=== PATIENT | male | born 1985 | race Asian ===

== ENCOUNTER 2020-06-07 20:50 | Emergency (ER) | payer SELFPAY ==
[~2020-06-07] VITALS: Ht 160 cm; Wt 64.9 kg
[2020-06-07 21:18] VITALS: BP_SYST 150
--- NOTE | 2020-06-07 21:18 | NUR ---
Patient triaged and placed in waiting room. VSS and patient appears in no acute distress at this time. Accompanied by , awaiting available bed, and MD notified of need for MSE.
--- NOTE | 2020-06-07 21:54 | NUR ---
Patient to ER bed 02 to gown for evaluation. Side rails up. Report given to LAVERN WHITING
--- NOTE | 2020-06-07 22:00 | NUR ---
Pt walked into the ED c/c s/p unwitnessed mechanical fall in the bathroom today. He states he was dizzy prior to fall. Pt with a laceration to right side lower lip, no active bleeding, +LOC for approx 1-2 minutes. Denies any PMH, -ETOH use, no drug use. Pt denies OLIVEIRA, N/V, neck pain. No fever, chills, CP, SOB.
--- NOTE | 2020-06-07 22:51 | NUR ---
SIOBHAN Lam at bedside examining patient.
[2020-06-07] MEDS ORDERED: DIPH-TET-PERTUS Vaccine 0.5 ML VIAL (ADACEL) I.M. ONE (23:00)
[2020-06-07] MEDS ORDERED: LIDOCAINE 2%, 20 ML MDV ONE (23:00)
[2020-06-07] MEDS ORDERED: LIDOCAINE 2%, 20 ML MDV INJ ONE (23:00)
[2020-06-07] MEDS ORDERED: BACITRACIN 1 GM OINT TP ONE (23:00)
--- NOTE | 2020-06-07 23:29 | NUR ---
Patient has a 1 cm laceration to R lip. Dr. Jim applied sutures using sterile technique. Edges well approximated. Site cleansed with normal saline. Dressing of bacitracin applied to site. No bleeding noted. Pt tolerated well.
--- NOTE | 2020-06-07 23:46 | NUR ---
Pt taken to CT scan, via wheel chair.
--- NOTE | 2020-06-08 00:10 | NUR ---
Lab at bedside.
[2020-06-08] MEDS ORDERED: AMOXICILLIN/CLAVULANATE POTASSIUM 500 MG TABLET PO ONE (00:15)
[2020-06-08] MEDS ORDERED: AMOX-423 PO (00:20)
[2020-06-08] MEDS ORDERED: IBUP-1969 PO (00:20)
[2020-06-08] MEDS ORDERED: AMOXICILLIN/CLAVULANATE POTASSIUM 500 MG TABLET ONE (00:22)
[2020-06-08] MEDS ORDERED: BACITRACIN 1 GM OINT TP ONE (00:22)
[2020-06-08 00:23] LABS: BASOPHILS # (AUTO) 0.1 K/uL (0.0-0.2); BASOPHILS % (AUTO) 0.4 % (0.0-2.0); EOSINOPHILS # (AUTO) 0.2 K/uL (0.0-0.4); EOSINOPHILS % (AUTO) 1.6 % (0.0-4.0); HEMATOCRIT 45.7 % (36-54); HEMOGLOBIN 15.5 g/dL (14.0-18.0); LYMPHOCYTES # (AUTO) 2.3 K/uL (1.0-5.5); LYMPHOCYTES % (AUTO) 17.4 % (20.5-51.5); MEAN CORPUSCULAR HEMOGLOBIN 29 pg (27-31); MEAN CORPUSCULAR HGB CONC 34 % (32-36); MEAN CORPUSCULAR VOLUME 85 fL (79.0-98.0); MONOCYTES % (AUTO) 7.3 % (1.7-9.3); NEUTROPHILS # (AUTO) 9.8 K/uL (1.8-7.7); NEUTROPHILS % (AUTO) 73.3 % (40.0-70.0); PLATELET COUNT (AUTO) 328 K/uL (130-430); RED BLOOD CELL COUNT(AUTO) 5.37 MIL/uL (4.2-6.2); RED CELL DISTRIBUTION WIDTH 13.9 % (9.0-15.0); WHITE BLOOD COUNT (AUTO) 13.4 K/uL (4.8-10.8)
[2020-06-08 00:36] LABS: CALCIUM 8.8 mg/dL (8.4-11.0); CREATININE 0.65 mg/dL (0.55-1.30); POTASSIUM 4.1 mmol/L (3.5-5.1)
[2020-06-08 00:42] LABS: ALBUMIN 3.7 g/dL (3.4-4.8); TOTAL BILIRUBIN 0.5 mg/dL (0.0-1.0)
--- NOTE | 2020-06-08 01:42 | NUR ---
Pt ambulated to bathroom, w/ assistance of Michele EMT. Pt has steady gait.
[2020-06-08 01:50] VITALS: BP_SYST 136
--- NOTE | 2020-06-08 01:50 | NUR ---
Patient given written and verbal discharge instructions and verbalizes understanding. ER MD discussed with patient the results and treatment provided. Patient in stable condition. ID arm band removed. IV catheter removed intact and dressing applied, no active bleeding. Rx of Augmentin, Motrin given. Patient educated on pain management and to follow up with PMD. Opportunity for questions provided and answered. Medication side effect fact sheet provided.
== END 2020-06-08 01:50 | disposition home or self-care (01) ==
LOC: SED 20:50
DX: S01.511A Laceration without foreign body of lip, initial encounter (principal); R55 Syncope and collapse; X58.XXXA Exposure to other specified factors, initial encounter; Y93.89 Activity, other specified; Y92.89 Other specified places as the place of occurrence of the external cause; Y99.8 Other external cause status
CPT/HCPCS: 12011; 36415; 70470; 76376; 80053; 84484; 85025; 85610; 85730; 90471; 90715; 93005 ×2; 99285; J2001

== ENCOUNTER 2020-06-17 18:24 | Emergency (ER) | payer SELFPAY ==
[~2020-06-17] VITALS: Ht 160 cm; Wt 64.9 kg
[~2020-06-17 18:24] MED LIST: AMOX-423 PO; IBUP-1969 PO
[2020-06-17 18:30] VITALS: BP_SYST 158
[2020-06-17 20:50] VITALS: BP_SYST 158
== END 2020-06-17 20:50 | disposition home or self-care (01) ==
LOC: SED 18:24
DX: S01.511D Laceration without foreign body of lip, subsequent encounter (principal); X58.XXXD Exposure to other specified factors, subsequent encounter
CPT/HCPCS: 99281

== ENCOUNTER 2022-09-02 12:42 | Emergency (ER) | payer BC ==
[~2022-09-02] VITALS: Ht 157.5 cm; Wt 63.5 kg
[2022-09-02 12:51] VITALS: BP_SYST 137
[2022-09-02] MEDS ORDERED: NAPR-690 PO (13:30)
[2022-09-02] MEDS ORDERED: FAMO40TA7 PO (13:44)
[2022-09-02 13:55] VITALS: BP_SYST 137
== END 2022-09-02 13:56 | disposition home or self-care (01) ==
LOC: SED 12:42
DX: S83.92XA Sprain of unspecified site of left knee, initial encounter (principal); Z79.899 Other long term (current) drug therapy; V89.2XXA Person injured in unspecified motor-vehicle accident, traffic, initial encounter; Y93.89 Activity, other specified; Y92.89 Other specified places as the place of occurrence of the external cause; Y99.8 Other external cause status
CPT/HCPCS: 73560-TC; 99283